=== PATIENT | male | born 1965 | race Caucasian/White ===

== ENCOUNTER 2020-12-27 08:52 | Day surgery (SDC) | payer MEDICAID, SELFPAY ==
[~2020-12-27] VITALS: Ht 185.4 cm; Wt 86.2 kg
[2020-12-27] MEDS ORDERED: DIPHENHYDRAMINE INJ 50 MG/ML VIAL ONE (09:22)
[2020-12-27] MEDS ORDERED: MIDAZOLAM HCL 5 MG/5 ML VIAL ONE (09:22)
[2020-12-27 11:58] VITALS: BP_SYST 149
== END 2020-12-27 11:28 | disposition home or self-care (01) ==
LOC: SDS 08:52 → SMU 08:53 → SDS 10:10 → SMU 11:28 → SDS 11:28
PROVIDERS: ATTEND Internal Medicine
DX: M51.16 Intervertebral disc disorders with radiculopathy, lumbar region (principal); Z79.84 Long term (current) use of oral hypoglycemic drugs; Z79.899 Other long term (current) drug therapy
CPT/HCPCS: 36415; 62323; 87426; J1200; J2250; 76000